=== PATIENT | female | born 1945 | race Caucasian/White ===

== ENCOUNTER 2016-11-23 15:04 | Emergency (ER) | payer MEDICARE ==
[~2016-11-23 15:04] MED LIST: ALEVE220 MG PO; ASPIRIN325 MG PO; BAYER CHEWABLE81 MG PO; CALCIUM 600+D T1 TA1 PO; CYMBALTA30 MG PO; FISH OIL 1,0001 CA1 PO; FLUTICASONE PRO16 GM NASAL; HYDROCODONE-APA1 TAB PO; KLONOPIN1 MG PO; LEXAPRO10 MG PO; LISINOPRIL2.5 MG PO; NAPROSYN500 MG PO; NITROSTAT0.4 MG SL; NORCO 5/325 TAB1 TA1 PO; PRAVACHOL20 MG PO; PRILOSEC10 MG PO; ROBAXIN500 MG PO; SYNTHROID25 MCG PO; VERELAN180 MG PO
== END 2016-11-23 22:23 | disposition home or self-care (01) ==
LOC: D.ER 15:04
DX: S00.83XA Contusion of other part of head, initial encounter (principal); W01.0XXA Fall on same level from slipping, tripping and stumbling without subsequent striking against object, initial encounter; Y93.89 Activity, other specified; Y92.019 Unspecified place in single-family (private) house as the place of occurrence of the external cause

== ENCOUNTER → 2017-08-03 08:36 | Outpatient (CLI) | payer MEDICARE | END | disposition home or self-care (01) | LOC: D.NM 08:15 | DX: M85.60 Other cyst of bone, unspecified site (principal) ==